=== PATIENT | female | born 1965 | race Caucasian/White ===

== ENCOUNTER 2017-08-18 13:42 | Outpatient (CLI) | payer OTHER ==
--- NOTE | 2017-08-20 10:35 | MRI Preliminary Report ---
Exam: MRI KNEE RT W/O IMPRESSION: 1. Full-thickness radial tear at the junction of the posterior horn and root medial meniscus. 2. Sequelae of old sprain of the medial collateral ligament. 3. Moderate tricompartmental cartilage loss. 4. Small joint effusion with synovitis. [facility]CUL[facility] SECTION SITE ID: [id number]
--- NOTE | 2017-08-20 12:06 | MRI Report ---
EXAM: RIGHT KNEE MRI WITHOUT CONTRAST EXAM DATE: 08/18/2017 02:42 PM. CLINICAL HISTORY: Pain in right knee. COMPARISON: None. TECHNIQUE: Multiplanar, multisequence T1-weighted and fluid-sensitive sequences of the knee without c ontrast. Other: None. FINDINGS: Evaluation mildly limited due to patient body habitus requiring larger [id number]. Bones: Minimal bone marrow edema and reactive cyst at the posterior lateral aspect medial tibial plat eau. Mild bone marrow edema and small reactive cysts at the patellofemoral joint. No fracture. Small tricompartmental osteophytes. Articular Cartilage: Diffuse shallow with superimposed foci of deep partial thickness cartilage loss medial and patellofemoral compartments. Small foci of deep partial-thickness loss and fissuring/teari ng at the lateral compartment. Medial Meniscus: Intrasubstance degeneration in the body. Full-thickness radial tear at the junction of the posterior horn and root. No discernible intact fibers. Mild extrusion of the body into the med ial gutter. Lateral Meniscus: The lateral meniscus is intact. Cruciate Ligaments: The anterior and posterior cruciate ligaments are intact. Collateral Ligaments: Mild thickening at the proximal aspect intact medial collateral ligament, likel y due to old injury. Lateral collateral ligament is normal in appearance. Tendons: The quadriceps, patellar, semimembranosus, and popliteus tendons are unremarkable. Musculature: No edema or fatty atrophy. Other: Small joint effusion with synovitis. Minimal thickening of the suprapatellar plica. No poplite al cyst. No loose bodies. The medial and lateral retinacula are intact. Minimal subcutaneous edema a nteriorly. Mild reactive edema in the fat pads. IMPRESSION: 1. Full-thickness radial tear at the junction of the posterior horn and root medial meniscus. 2. Sequelae of old sprain at the medial collateral ligament. 3. Moderate tricompartmental cartilage loss. 4. Small joint effusion with synovitis. [facility]CUL[facility]KE[facility] RAD[facility]OLOG[facility] SECTION Referring Provider Line: [phone] SITE ID: [id number]
== END 2017-08-18 13:43 | disposition home or self-care (01) ==
LOC: DI 13:42
DX: S86.111A Strain of other muscle(s) and tendon(s) of posterior muscle group at lower leg level, right leg, initial encounter (principal); S83.241A Other tear of medial meniscus, current injury, right knee, initial encounter; S83.411S Sprain of medial collateral ligament of right knee, sequela; M94.9 Disorder of cartilage, unspecified; M25.461 Effusion, right knee; M65.9 Synovitis and tenosynovitis, unspecified